=== PATIENT | female | born 1965 | race Caucasian/White ===

== ENCOUNTER 2017-08-18 13:33 | Emergency (ER) | payer OTHER ==
[~2017-08-18] VITALS: Ht 157.5 cm; Wt 81.0 kg
[~2017-08-18 13:33] MED LIST: HYDR-762 PO; ONDA4TAB35 PO
[2017-08-18 13:35] VITALS: Ht 157.5 cm; Wt 81.0 kg
[2017-08-18] MEDS ORDERED: morphine 2 MG INJ IV STA (14:06)
[2017-08-18] MEDS ORDERED: ACETAMINOPHEN 500 MG TAB PO STA (14:06)
[2017-08-18] MEDS ORDERED: ASPIRIN 325 MG TAB PO STA (14:06)
[2017-08-18] MEDS ORDERED: SOD CHLORIDE 0.9% 500 ML IV STA (14:06)
[2017-08-18] MEDS ORDERED: LIDOCAINE/MYLANTA 40 ML BTL PO ONE (14:30)
[2017-08-18 14:36] LABS: BASOPHIL # 0.1 10^3/ul (0.0-0.1); BASOPHILS % 0.8 % (0.0-2.0); EOSINOPHILS # 0.3 10^3/ul (0.0-0.5); EOSINOPHILS % 4.2 % (0.0-7.0); HEMATOCRIT 40.8 % (37.0-47.0); HEMOGLOBIN 13.9 g/dl (12.0-16.0); LYMPHOCYTES # 2.8 10^3/ul (0.8-2.9); LYMPHOCYTES % 44.8 % (15.0-51.0); MEAN CORPUSCULAR HEMOGLOBIN 28.3 pg (29.0-33.0); MEAN CORPUSCULAR HGB CONC 34.1 g/dl (32.0-37.0); MEAN CORPUSCULAR VOLUME 83.1 fl (82.0-101.0); MONOCYTE # 0.3 10^3/ul (0.3-0.9); NEUTROPHIL # 2.8 10^3/ul (1.6-7.5); PLATELET COUNT 318 10^3/UL (140-415); RED BLOOD COUNT 4.91 10^6/ul (4.20-5.40); RED CELL DISTRIBUTION WIDTH 12.6 % (11.5-14.5); WHITE BLOOD COUNT 6.2 10^3/ul (4.8-10.8)
--- NOTE | 2017-08-18 14:49 | RADRPT ---
PROCEDURE: XR Chest. CLINICAL INDICATION: Chest pain TECHNIQUE: Single frontal view of the chest was obtained COMPARISON: 07/09/2013 FINDINGS: No pleural effusion or pneumothorax. No consolidation. Stable cardiomediastinal silhouette. No acute osseous abnormality. IMPRESSION: No acute cardiopulmonary disease. RPTAT: EE She English Physician Date Time Electronically viewed and signed by She English Physician on 08/18/2017 14:49 /
--- NOTE | 2017-08-18 14:59 | ERD ---
ER Documentation Chief Complaint Date/Time DATE: 08/18/17 TIME: 14:57 Chief Complaint chest pain and sob HPI This 52-year-old female presents with chest pain that began last night. The midsternal chest pain is described as a sharp burning pain that radiates to the back. She also has had a headache since last night. She feels like she cannot take a deep breath and has nausea. Denies any fevers or chills. ROS All systems reviewed and are negative except as per history of present illness. Medications Home Meds Active Scripts Ondansetron (Zofran Odt) 4 Mg Tab.rapdis, 4 MG PO Q6, #10 Prov:GINO COCHRAN DO 08/18/17 Ranitidine Hcl* (Zantac*) 150 Mg Tablet, 150 MG PO BID Y for EPIGASTRIC PAIN, # 30 TAB Prov:DIMASGINO DO 08/18/17 Discontinued Scripts Ondansetron Hcl* (Zofran* ODT) 4 mg -ODT Tab.disper, 4 MG PO Q6 Y for NAUSEA AND /OR VOMITING, #30 TAB Prov:DREAD SANTA MD 10/18/15 Hydrocodone Bit-Acetaminophen* (Murray*) 10-325 Mg Tablet, 1 TAB PO Q6 Y for PAIN , #12 TAB Prov:DREAD SANTA MD 10/18/15 Allergies Allergies: Coded Allergies: No Known Drug Allergy (Verified Allergy, Unknown, 10/18/15) PMhx/Soc History of Surgery: Yes (, KIDNEY STONES(2006)) Anesthesia Reaction: No Hx Neurological Disorder: No Hx Respiratory Disorders: No Hx Cardiac Disorders: No Hx Psychiatric Problems: No Hx Miscellaneous Medical Probl: Yes (kidney stones) Hx Alcohol Use: No Hx Substance Use: No Hx Tobacco Use: No Physical Exam Vitals Vital Signs Date Time Temp Pulse Resp B/P Pulse Ox O2 Delivery O2 Flow Rate FiO2 08/18/17 16:45 98.2 75 28 142/69 99 08/18/17 14:45 Nasal Cannula 2 08/18/17 13:35 98.2 98 28 149/71 99 Physical Exam Const: [] Mild distress Head: Atraumatic Eyes: Normal Conjunctiva ENT: Normal External Ears, Nose and Mouth. Neck: Full range of motion..~ No meningismus. Resp: Clear to auscultation bilaterally Cardio: Regular rate and rhythm, no murmurs Abd: Soft, non tender, non distended. Normal bowel sounds Skin: No petechiae or rashes Ext: No cyanosis, or edema Neur: Awake and alert and oriented 3, no focal deficit Psych: Normal Mood and Affect Result Diagram: 08/18/17 1420 08/18/17 1420 Results 24 hrs Laboratory Tests Test 08/18/17 14:20 White Blood Count 6.210^3/ul Red Blood Count 4.9110^6/ul Hemoglobin 13.9g/dl Hematocrit 40.8% Mean Corpuscular Volume 83.1fl Mean Corpuscular Hemoglobin 28.3pg Mean Corpuscular Hemoglobin Concent 34.1g/dl Red Cell Distribution Width 12.6% Platelet Count 91939^3/UL Mean Platelet Volume 10.0fl Neutrophils % 45.0% Lymphocytes % 44.8% Monocytes % 5.0% Eosinophils % 4.2% Basophils % 0.8% Nucleated Red Blood Cells % 0.0/100WBC Neutrophils # 2.810^3/ul Lymphocytes # 2.810^3/ul Monocytes # 0.310^3/ul Eosinophils # 0.310^3/ul Basophils # 0.110^3/ul Nucleated Red Blood Cells # 0.010^3/ul Sodium Level 143mmol/L Potassium Level 3.8mmol/L Chloride Level 107mmol/L Carbon Dioxide Level 24mmol/L Anion Gap 16 Blood Urea Nitrogen 14mg/dl Creatinine 0.71mg/dl Glucose Level 88mg/dl Calcium Level 9.5mg/dl Troponin I < 0.012ng/ml B-Type Natriuretic Peptide 58PG/ML Current Medications Medications (Trade) Dose Ordered Sig/Aminata Route PRN Reason Start Time Stop Time Status Last Admin Dose Admin Sodium Chloride (NS) 500 ml @ 500 mls/hr Q1H STAT IV 08/18/17 14:06 08/18/17 15:05 DC 08/18/17 14:26 Aspirin (Aspirin) 325 mg ONCE STAT PO 08/18/17 14:06 08/18/17 14:10 DC 08/18/17 14:52 Morphine Sulfate (morphine) 2 mg ONCE STAT IV 08/18/17 14:06 08/18/17 14:10 DC 08/18/17 14:26 Acetaminophen (Tylenol Tab) 1,000 mg ONCE STAT PO 08/18/17 14:06 08/18/17 14:10 DC 08/18/17 14:53 Miscellaneous Medication (Gi Cocktail (2)) 40 ml ONCE ONCE PO 08/18/17 14:30 08/18/17 14:31 DC 08/18/17 14:53 Nitroglycerin (Nitroglycerin (Sl Tab) 0.4 Mg) 1 tab ONCE ONCE SL 08/18/17 17:00 08/18/17 17:01 DC 08/18/17 16:50 Metoclopramide HCl (Reglan) 10 mg ONCE ONCE IV 08/18/17 17:30 08/18/17 17:31 DC 08/18/17 17:22 Ketorolac Tromethamine (Toradol) 30 mg ONCE STAT IV 08/18/17 17:22 08/18/17 17:23 DC Procedures/MDM Chest pain, shortness of breath, nausea and vomiting resolved in the emergency room. Patient was given aspirin and GI cocktail as well as Reglan. Initially she had no resolution of chest pain and vomited. I had spoken to her insurance provider who allowed her to stay for observation, however I spoke to patient again about admission and she stated that she had no further symptoms and felt completely better. I will discharge her now that her laboratory results are all negative including negative troponin, negative EKG for ischemia and no other significant laboratory abnormalities. Instructions follow with primary care doctor in the next couple of days as well as obtain an echocardiogram as an outpatient. Return precautions given. EKG interpretation: Normal sinus rhythm, rate of 78, normal axis, no ST or T- wave changes concerning for acute ischemia, normal intervals. Normal structural iron worker interpretation: Normal sinus rhythm without arrhythmia Chest x-ray interpretation: I see no acute process. I see no widened mediastinum, no pneumothorax, no infiltrates, no pulmonary edema, no fractures. Departure Diagnosis: Primary Impression: Chest pain Condition: Stable GINO COCHRAN DO Aug 18, 2017 14:59
[2017-08-18 15:03] LABS: ANION GAP 16 (8-16); BLOOD UREA NITROGEN 14 mg/dl (7-20); CALCIUM 9.5 mg/dl (8.4-10.2); CARBON DIOXIDE 24 mmol/L (21-31); CHLORIDE 107 mmol/L (97-110); CREATININE 0.71 mg/dl (0.44-1.00); GLUCOSE 88 mg/dl (70-220); POTASSIUM 3.8 mmol/L (3.5-5.1); SODIUM 143 mmol/L (135-144)
[2017-08-18 15:15] LABS: B-TYPE NATRIURETIC PEPTIDE 58 PG/ML (0-125)
[2017-08-18 15:21] LABS: TROPONIN-I < 0.012 ng/ml (0.00-0.12)
[2017-08-18 16:45] VITALS: BP 142/69; PULSE 75; RESP 28; TEMP 98.2
[2017-08-18] MEDS ORDERED: NITROGLYCERIN (SL) 0.4 MG TAB SL ONE (17:00)
[2017-08-18] MEDS ORDERED: KETOROLAC 30 MG INJ IV STA (17:22)
[2017-08-18] MEDS ORDERED: METOCLOPRAMIDE 10 MG INJ IV ONE (17:30)
[2017-08-18] MEDS ORDERED: RANI150T9 PO (17:52)
[2017-08-18] MEDS ORDERED: ONDA4TAB11 PO (17:52)
== END 2017-08-18 18:19 | disposition home or self-care (01) ==
LOC: E/R 13:33
DX: R07.9 Chest pain, unspecified (principal)
CPT/HCPCS: 36415; 71010; 80048; 83880; 84484; 85025; 93005; 96374; 96375; J1885; J2270; J2765; J7040; Z7502; Z7610